=== PATIENT | female | born 1980 | race Caucasian/White ===

== ENCOUNTER 2016-04-26 21:44 | Emergency (ER) | payer BC ==
[2016-05-18] MEDS ORDERED: DEXILANT60 MG PO (10:06)
[2016-05-18] MEDS ORDERED: TENORMIN 25 MG25 MG PO (10:06)
[2016-05-18] MEDS ORDERED: XYZAL5 MG PO (10:07)
[2016-05-18] MEDS ORDERED: NORCO 7.5-3251 EACH PO (14:03)
== END 2016-04-26 21:56 | disposition left against medical advice (07) ==
LOC: ER1 21:44
DX: Z53.21 Procedure and treatment not carried out due to patient leaving prior to being seen by health care provider (principal)

== ENCOUNTER → 2016-05-04 | Outpatient (CLI) | payer BC, SELFPAY ==
[~2016-05-04] MED LIST: DEXILANT60 MG PO; NORCO 7.5-3251 EACH PO; TENORMIN 25 MG25 MG PO; XYZAL5 MG PO
== END ==
LOC: KOH-I 14:08
DX: R10.9 Unspecified abdominal pain (principal); R93.2 Abnormal findings on diagnostic imaging of liver and biliary tract
CPT/HCPCS: 76705

== ENCOUNTER → 2016-05-13 | Outpatient (CLI) | payer BC | LOC: OPSV2 11:00 | DX: Z01.818 Encounter for other preprocedural examination (principal) ==

== ENCOUNTER → 2016-05-18 | Day surgery (SDC) | payer BC, SELFPAY ==
[~2016-05-18] VITALS: Ht 175.3 cm; Wt 88.9 kg
== END | disposition home or self-care (01) ==
LOC: OR 09:08
PROVIDERS: Surgery
PROC: 0FT44ZZ Resection of Gallbladder, Percutaneous Endoscopic Approach (ICD-10-PCS; principal; 2016-05-18 10:40)
DX: K80.10 Calculus of gallbladder with chronic cholecystitis without obstruction (principal); K21.9 Gastro-esophageal reflux disease without esophagitis; R00.0 Tachycardia, unspecified; E55.9 Vitamin D deficiency, unspecified; Z86.2 Personal history of diseases of the blood and blood-forming organs and certain disorders involving the immune mechanism; Z79.899 Other long term (current) drug therapy
CPT/HCPCS: 36415; 84703; J0295; J1100; J1885; J2250; J2270; J2405; J2710; J3010; J7030; J7050; J7120; Q9962

== ENCOUNTER → 2020-03-04 | Outpatient (CLI) | payer BC ==
[~2020-03-04] MED LIST changes: +ASPIRIN CHEWABL81 MG PO; +NITROSTAT0.4 MG SL
== END ==
LOC: KOH-I 12:28
DX: R07.9 Chest pain, unspecified (principal)
CPT/HCPCS: 71046

== ENCOUNTER → 2020-11-06 | Outpatient (CLI) | payer BC | LOC: HEART 5 10:00 | DX: R00.2 Palpitations (principal); I51.7 Cardiomegaly | CPT/HCPCS: 93306 ==